=== PATIENT | female | born 1990 ===

== ENCOUNTER 2021-01-30 19:41 | Outpatient (REF) | payer OTHER, SELFPAY ==
[2021-01-30 21:11] LABS: Influenza A PCR NEGATIVE (Negative); Influenza B PCR NEGATIVE (Negative); Resp Syncy Virus RNA Qual PCR NEGATIVE (Negative); SARS COV2 PCR INHOUSE NEGATIVE (Negative)
== END 2021-01-30 19:42 | disposition home or self-care (01) ==
LOC: HO.LAB 19:41
PROVIDERS: Visit Provider Nurse Practitioner Primary Care
DX: Z20.822 Contact with and (suspected) exposure to COVID-19 (principal)
CPT/HCPCS: 0241U; 36415